=== PATIENT | female | born 1990 | race Caucasian/White ===

== ENCOUNTER 2022-03-23 17:24 | Emergency (ER) | payer OTHER ==
[~2022-03-23 17:24] MED LIST: IBUPROFEN800 MG PO; MEDROL DOSEPAK 24 MG PO; NASONEX17 GM; PROAIR DIGIHAL90 MCG INH
[2022-03-23] MEDS ORDERED: IBUPROFEN800 MG PO (17:49)
== END 2022-03-23 20:45 | disposition home or self-care (01) ==
LOC: ER1 17:24
DX: S06.0X9A Concussion with loss of consciousness of unspecified duration, initial encounter (principal); S46.012A Strain of muscle(s) and tendon(s) of the rotator cuff of left shoulder, initial encounter; V49.40XA Driver injured in collision with unspecified motor vehicles in traffic accident, initial encounter; Y92.410 Unspecified street and highway as the place of occurrence of the external cause
CPT/HCPCS: 70450; 71046; 73030; 99284